=== PATIENT | female | born 2000 | race Two or more races ===

== ENCOUNTER 2023-07-05 21:37 | Emergency (ER) | payer BC, OTHER ==
[2023-07-05 22:28] LABS: Bilirubin Negative (Negative); Blood, Urine Negative (Negative); Glucose, Urine (Dipstick) Negative (Negative); Ketone, Urine Negative (Negative); Leukocyte Negative (Negative); Nitrite Negative (Negative); Protein, Urine (Dipstick) Negative (Neg-Trace); Specific Gravity, Urine 1.025 (1.005-1.030); Urobilinogen 0.2 mg/dL (Less than 2)
[2023-07-05 22:30] LABS: Pregnancy Test - Urine (BHCG) Negative (Negative); Pregu Control Background? CLEAR/WHITE (CLR/WHITE); Pregu Control Bar Appear? YES (CONTROL BAR); Specific Gravity 1.025 (1.002-1.036)
[2023-07-05 22:31] LABS: CAUTI Indications for Culture Pelvic or flank pain; Clarity Hazy (Clear); RBC/HPF None Seen HPF (0-3); WBC/HPF 0-3 HPF (0-3)
[2023-07-05 22:32] LABS: Bacteria/HPF 1+ HPF (None Seen); Urine Culture Reflex No No
[2023-07-05] MEDS ORDERED: Sodium Chloride 0.9% 1,000 ML ONE (22:52)
[2023-07-05] MEDS ORDERED: Ketorolac Tromethamine 30 MG/ML VIAL ONE (22:52)
[2023-07-05 23:17] LABS: #Eosinphils 0.1 thou/uL (0.0-0.7); #Lymphocytes 2.4 thou/uL (1.20-3.40); #Monocytes 0.5 thou/uL (0.11-0.59); %Basophils 0.6 % (0.0-1.0); %Eosinophils 0.7 % (0.0-10.0); %Monocytes 6.5 % (0.0-4.0); %Neutrophils 57.2 % (31.0-61.0); Hematocrit 35.1 % (36.0-47.0); Hemoglobin 11.9 g/dL (12.0-16.0); Mean Corpuscular Hemoglobin 30.4 pg (25.0-35.0); Mean Corpuscular Volume 89.5 fl (78.0-98.0); Mean Platelet Volume 7.1 fL (7.4-10.4); Platelet Count 284 10x3/uL (130-400); Red Blood Cell (RBC) Count 3.92 mill/uL (4.00-5.20); White Blood Cell (WBC) Count 6.9 10x3/uL (4.8-10.8)
[2023-07-05 23:34] LABS: ALT (SGPT) 73 U/L (8-55); AST (SGOT) 38 U/L (5-34); Albumin 3.9 g/dL (3.5-5.0); Alkaline Phosphatase 44 U/L (40-100); Anion Gap 13 mmol/L (10-20); BUN (Urea Nitrogen) 11 mg/dL (7.0-18.7); Bilirubin, Total 0.3 mg/dL (0.2-1.2); Calc. Creatinine Clearance 0 mL/min (70-130); Calcium 9.2 mg/dL (7.8-10.44); Carbon Dioxide 24 mmol/L (22-29); Chloride 105 mmol/L (98-107); Estimated GFR 121; Globulin 2.9 g/dL (2.4-3.5); Glucose 89 mg/dL (70-105); Lipase 28 U/L (8-78); Potassium 3.9 mmol/L (3.5-5.1); Protein, Total 6.8 g/dL (6.0-8.3); Sodium 138 mmol/L (136-145)
== END 2023-07-06 00:16 | disposition home or self-care (01) ==
LOC: MADERS 21:37
DX: E86.0 Dehydration (principal); D64.9 Anemia, unspecified; R10.84 Generalized abdominal pain; R79.89 Other specified abnormal findings of blood chemistry
CPT/HCPCS: 74176; 80053; 81001; 81025; 83690; 85025; 96361; 96374; J1885; J7050